=== PATIENT | female | born 1960 | race Caucasian/White ===

== ENCOUNTER → 2017-03-17 | Outpatient (CLI) | payer BC, OTHER ==
--- NOTE | 2017-03-18 08:18 | WOMENS IMAGING REPORT ---
EXAM DESCRIPTION: 3D SCREENING MAMMO BILAT COMPLETED DATE/TIME: 03/17/2017 8:00 am REASON FOR STUDY: SCREENING MAMMO Z12.31 ENCNTR SCREEN MAMMOGRAM FOR MALIGNANT NEOPLASM OF LUIS COMPARISON: Multiple since 2008 TECHNIQUE: Standard craniocaudal and mediolateral oblique views of each breast recorded using digita l acquisition and breast tomosynthesis. LIMITATIONS: None. FINDINGS: No masses, calcifications or architectural distortion. No areas of suspicion. Read with the assistance of CAD. .[facility] - R2 Cenova Version 1.3 .[facility] Imaging - R2 Cenova Version 1.3 .[facility] Imaging - R2 Cenova Version 2.4 .[facility] - R2 Cenova Version 2.4 .[facility] - R2 [employer] Manager Version 9.2 IMPRESSION: NORMAL MAMMOGRAM. BIRADS 1. BREAST DENSITY: c. The breasts are heterogeneously dense, which may obscure small masses. BIRAD: 1 NEGATIVE RECOMMENDATION: ROUTINE SCREENING Please continue yearly bilateral screening tomosynthesis in February 2018 COMMENT: The patient has been notified of the results by letter per SA requirements. Additional no tification policies are in place for contacting patient with suspicious or incomplete findings. Quality ID #[id number]: The [employer] recommends an annual screening mammogram for women aged 40 years or over. This facility utilizes a reminder system to ensure that all patients receive reminder letters, and/or direct phone calls for appointments. This includes reminders for routine scr eening mammograms, diagnostic mammograms, or other Breast Imaging Interventions when appropriate. Th is patient will be placed in the appropriate reminder system. The [employer] (ACR) has developed recommendations for screening MRI of the breast s in certain patient populations, to be used in conjunction with mammography. Breast MRI surveillanc e may be appropriate for women with more than 20% lifetime risk of developing breast cancer as deter mined by genetic testing, significant family history of the disease, or history of mantle radiation f or Hodgkins Disease. ACR Practice Guidelines 2008. DBT Technology DBT is a type of tomographic mammography. With conventional mammography, overlapping breast tissue ma y make lesions difficult to detect, even with good compression. DBT uses an x-ray tube that rotates a round the breast, taking images at different angles. These images are then combined to create thin sl ices of the breast that the radiologist can view as a 3D reconstruction. The [employer] unit can perform full-field digital mammograms (2D imaging); or DBT (3D imaging); or both, in a combination mode that quickly performs both the mammogram and the tomosynthesis scan while the breast is still compressed. PQRS 6045F: Fluoroscopic imaging is not utilized for breast tomosynthesis. TECHNICAL DOCUMENTATION: FINDING NUMBER: (1) ASSESSMENT: (1) JOB ID: [id number] [employer]- All Rights Reserved
== END ==
LOC: WI 07:30
PROVIDERS: ATTEND Specialist
DX: Z12.31 Encounter for screening mammogram for malignant neoplasm of breast (principal)
CPT/HCPCS: 77063; G0202; 77067

== ENCOUNTER → 2018-03-26 | Outpatient (CLI) | payer BC, OTHER ==
--- NOTE | 2018-03-26 09:26 | WOMENS IMAGING REPORT ---
EXAM DESCRIPTION: 3D SCREENING MAMMO BILAT COMPLETED DATE/TIME: 03/26/2018 9:01 am REASON FOR STUDY: SCREENING MAMMO Z12.31 ENCNTR SCREEN MAMMOGRAM FOR MALIGNANT NEOPLASM OF LUIS COMPARISON: [id number] TECHNIQUE: Standard craniocaudal and mediolateral oblique views of each breast recorded using digita l acquisition and breast tomosynthesis. LIMITATIONS: None. FINDINGS: No masses, calcifications or architectural distortion. No areas of suspicion. Read with the assistance of CAD. .[facility] - R2 Cenova Version 1.3 .[facility] Imaging - R2 Cenova Version 1.3 .[facility] Imaging - R2 Cenova Version 2.4 .[facility] - R2 Cenova Version 2.4 .[facility] AT [facility] - R2 Electronic Engraver Version 9.2 IMPRESSION: NORMAL MAMMOGRAM. BIRADS 1. BREAST DENSITY: b. There are scattered areas of fibroglandular density. BIRAD: 1 NEGATIVE RECOMMENDATION: ROUTINE SCREENING COMMENT: The patient has been notified of the results by letter per SA requirements. Additional no tification policies are in place for contacting patient with suspicious or incomplete findings. Quality ID #[id number]: The [employer] recommends an annual screening mammogram for women aged 40 years or over. This facility utilizes a reminder system to ensure that all patients receive reminder letters, and/or direct phone calls for appointments. This includes reminders for routine scr eening mammograms, diagnostic mammograms, or other Breast Imaging Interventions when appropriate. Th is patient will be placed in the appropriate reminder system. The [place] (ACR) has developed recommendations for screening MRI of the breast s in certain patient populations, to be used in conjunction with mammography. Breast MRI surveillanc e may be appropriate for women with more than 20% lifetime risk of developing breast cancer as deter mined by genetic testing, significant family history of the disease, or history of mantle radiation f or Hodgkins Disease. ACR Practice Guidelines 2008. DBT Technology DBT is a type of tomographic mammography. With conventional mammography, overlapping breast tissue ma y make lesions difficult to detect, even with good compression. DBT uses an x-ray tube that rotates a round the breast, taking images at different angles. These images are then combined to create thin sl ices of the breast that the radiologist can view as a 3D reconstruction. The [employer] unit can perform full-field digital mammograms (2D imaging); or DBT (3D imaging); or both, in a combination mode that quickly performs both the mammogram and the tomosynthesis scan while the breast is still compressed. PQRS 6045F: Fluoroscopic imaging is not utilized for breast tomosynthesis. TECHNICAL DOCUMENTATION: FINDING NUMBER: (1) ASSESSMENT: (1) JOB ID: [id number] [employer]- All Rights Reserved Reading location - IP/workstation name: [facility]
== END ==
LOC: WI 07:47
PROVIDERS: ATTEND Specialist
DX: Z12.31 Encounter for screening mammogram for malignant neoplasm of breast (principal)
CPT/HCPCS: 77063; 77067

== ENCOUNTER → 2018-06-15 | Outpatient (CLI) | payer BC, OTHER ==
[2018-06-15 08:50] LABS: ALANINE AMINOTRANSFERASE 69 U/L (9-52); ALBUMIN 4.8 g/dL (3.5-5.0); ALKALINE PHOSPHATASE 77 U/L (38-126); ASPARTATE AMINO TRANSFERASE 59 U/L (14-36); BILIRUBIN,DIRECT 0.3 mg/dL (0.0-0.4); BILIRUBIN,TOTAL 0.6 mg/dL (0.2-1.3); TOTAL PROTEIN 7.5 g/dL (6.3-8.2)
== END ==
LOC: OD 07:19
PROVIDERS: ATTEND Physician Assistant
DX: R94.5 Abnormal results of liver function studies (principal)
CPT/HCPCS: 36415; 80076

== ENCOUNTER → 2019-04-04 | Outpatient (CLI) | payer BC, OTHER ==
--- NOTE | 2019-04-04 10:43 | WOMENS IMAGING REPORT ---
EXAM DESCRIPTION: 3D SCREENING MAMMO BILAT COMPLETED DATE/TIME: 04/04/2019 9:51 am REASON FOR STUDY: Z12.31 SCREENING MAMMO Z12.31 ENCNTR SCREEN MAMMOGRAM FOR MALIGNANT NEOPLASM OF B RE Z78.0 ASYMPTOMATIC MENOPAUSAL STATE COMPARISON: 2014 to 2017 EXAM PARAMETERS: Views: Standard craniocaudal and mediolateral oblique views of each breast recorded using digital acquisition and breast tomosynthesis. Read with the assistance of CAD. .[facility] - [employer] Former Version 9.2 LIMITATIONS: None. FINDINGS: No suspicious masses, suspicious calcifications or architectural distortion. No areas of c oncern. IMPRESSION: NEGATIVE MAMMOGRAM. BIRADS 1. BREAST DENSITY: b. There are scattered areas of fibroglandular density. BIRAD: ASSESSMENT: 1 NEGATIVE RECOMMENDATION: ROUTINE SCREENING COMMENT: The patient has been notified of the results by letter per MQSA requirements. Additional no tification policies are in place for contacting patient with suspicious or incomplete findings. Quality ID #[id number]: The [employer] recommends an annual screening mammogram for women aged 40 years or over. This facility utilizes a reminder system to ensure that all patients receive reminder letters, and/or direct phone calls for appointments. This includes reminders for routine scr eening mammograms, diagnostic mammograms, or other Breast Imaging Interventions when appropriate. Th is patient will be placed in the appropriate reminder system. TECHNICAL DOCUMENTATION: FINDING NUMBER: (1) ASSESSMENT: (1) JOB ID: [id number] [employer]- All Rights Reserved Reading location - IP/workstation name: [email or web address]
--- NOTE | 2019-04-04 12:30 | WOMENS IMAGING REPORT ---
EXAM DESCRIPTION: BONE DENSITY HIP/SPINE COMPLETED DATE/TIME: 04/04/2019 9:51 am REASON FOR STUDY: Z78.0 BONE DENSITY Z12.31 ENCNTR SCREEN MAMMOGRAM FOR MALIGNANT NEOPLASM OF LUIS Z 78.0 ASYMPTOMATIC MENOPAUSAL STATE COMPARISON: None. TECHNIQUE: Dual-Energy X-ray Absorptiometry (DEXA) of the AP Spine and Hip. LIMITATIONS: None. FINDINGS: LUMBAR SPINE: The bone mineral density (BMD) measured from L1-L4 in the AP projection correlates with a T-score of -1.0, which is normal as defined by the World Health Organization. BMD Change vs Baseline: N/A HIP: The bone mineral density (BMD) measured in the left hip correlates with a T-score of -0.9, which is n ormal as defined by the World Health Organization. BMD Change vs Baseline: N/A 10 year Fracture Risk Assessment: Major Osteoporotic Fracture: Not available. Hip Fracture: Not available. IMPRESSION: 1. LUMBAR SPINE WHO CLASSIFICATION: NORMAL. 2. HIP WHO CLASSIFICATION: NORMAL. OVERALL ASSESSMENT: WHO CLASSIFICATION: NORMAL. COMMENT: The World Health Organization defines low BMD as follows: T-score: Normal: Greater than -1.0 Osteopenia: Between -1.0 and -2.5 Osteoporosis: Less than -2.5 without fractures Established osteoporosis: Less than -2.5 with fractures In general, you may wish to consider: Diagnosis Treatment Follow-up DEXA Normal BMD Prevention 2-3 years Osteopenia Prevention/Therapy 1-2 years Osteoporosis Therapy Yearly TECHNICAL DOCUMENTATION: JOB ID: [id number]- All Rights Reserved Reading location - IP/workstation name: [email or web address]
== END ==
LOC: WI 09:15
PROVIDERS: ATTEND Specialist
DX: Z12.31 Encounter for screening mammogram for malignant neoplasm of breast (principal); Z78.0 Asymptomatic menopausal state
CPT/HCPCS: 77063; 77067; 77080

== ENCOUNTER → 2020-04-05 | Outpatient (CLI) | payer BC, OTHER ==
--- NOTE | 2020-04-05 08:48 | WOMENS IMAGING REPORT ---
EXAM DESCRIPTION: 3D SCREENING MAMMO BILAT IMAGES COMPLETED DATE/TIME: 04/05/2020 7:49 am REASON FOR STUDY: ROUTINE BILATERAL SCREENING;Z12.31 Z12.31 ENCNTR SCREEN MAMMOGRAM FOR MALIGNANT N EOPLASM OF LUIS COMPARISON: Priors back to 2010 EXAM PARAMETERS: Views: Standard craniocaudal and mediolateral oblique views of each breast recorded using digital acquisition and breast tomosynthesis. Read with the assistance of CAD. .[facility] Sheet Layer Version 9.2 LIMITATIONS: None. FINDINGS: No suspicious masses, suspicious calcifications or architectural distortion. No areas of c oncern. IMPRESSION: NEGATIVE MAMMOGRAM. BIRADS 1. BREAST DENSITY: b. There are scattered areas of fibroglandular density. BIRAD: ASSESSMENT: 1 NEGATIVE RECOMMENDATION: ROUTINE SCREENING COMMENT: The patient has been notified of the results by letter per MQSA requirements. Additional no tification policies are in place for contacting patient with suspicious or incomplete findings. Quality ID #[id number]: [employer] recommends an annual screening mammogram for women aged 40 years or over. This facility utilizes a reminder system to ensure that all patients receive reminder letters, and/or direct phone calls for appointments. This includes reminders for routine scr eening mammograms, diagnostic mammograms, or other Breast Imaging Interventions when appropriate. Th is patient will be placed in the appropriate reminder system. TECHNICAL DOCUMENTATION: FINDING NUMBER: (1) ASSESSMENT: (1) JOB ID: [id number] [employer]- All Rights Reserved Reading location - IP/workstation name: [email or web address]
--- OUTSIDE RECORDS SUMMARY | 2020-04-06 15:03 | XMS REPORT ---
:1960 [facility] [address] [place] [address] Care Team Providers Name Role Phone Laurita ROBISON Attending Clinician Unavailable Sanjay ROBISON Attending Clinician Unavailable Allergies, Adverse Reactions, Alerts This patient has no known allergies or adverse reactions. Medications This patient has no known medications. Problems This patient has no known problems. Procedures Procedure Date / Time Performed Performing Clinician Devic e OFFICE/OUTPATIENT VISIT, EST 2016-12-03 07:45:00 ASSAY OF FREE THYROXINE 2016-12-03 07:45:00 ASSAY THYROID STIM HORMONE 2016-12-03 07:45:00 ROUTINE VENIPUNCTURE 2016-12-03 07:45:00 OFFICE/OUTPATIENT VISIT, EST 2016-07-22 08:45:00 OFFICE/OUTPATIENT VISIT, EST 2016-03-19 14:45:00 LIPID PANEL 2016-03-19 14:45:00 ROUTINE VENIPUNCTURE 2016-03-19 14:45:00 COMPREHEN METABOLIC PANEL 2016-03-19 14:45:00 LIPID PANEL 2015 07:45:00 OFFICE/OUTPATIENT VISIT, EST 2015 07:45:00 ROUTINE VENIPUNCTURE 2015 07:45:00 COMPREHEN METABOLIC PANEL 2015-06-26 07:45:00 OFFICE/OUTPATIENT VISIT, EST 2015-06-26 07:45:00 ASSAY THYROID STIM HORMONE 2015-06-26 07:45:00 LIPID PANEL 2015-06-26 07:45:00 ROUTINE VENIPUNCTURE 2015-06-26 07:45:00 OFFICE/OUTPATIENT VISIT, EST 2015-03-26 07:45:00 OFFICE/OUTPATIENT VISIT, EST 2015-03-13 08:00:00 OFFICE/OUTPATIENT VISIT, EST 2014-12-11 14:15:00 COMPREHEN METABOLIC PANEL 2014-12-06 07:45:00 LIPID PANEL 2014-12-06 07:45:00 ASSAY THYROID STIM HORMONE 2014-12-06 07:45:00 OFFICE/OUTPATIENT VISIT, EST 2014-12-06 07:45:00 ROUTINE VENIPUNCTURE 2014-12-06 07:45:00 OFFICE/OUTPATIENT VISIT, EST 2014-01-26 09:30:00 OFFICE/OUTPATIENT VISIT, EST 2014-01-09 16:00:00 HEPATIC FUNCTION PANEL 2013-09-08 15:45:00 OFFICE/OUTPATIENT VISIT, EST 2013-09-08 15:45:00 ROUTINE VENIPUNCTURE 2013-09-08 15:45:00 OFFICE/OUTPATIENT VISIT, EST 2013-08-25 09:15:00 Results Test Description Test Time Test Comments Text Results Atomic Results Result Comments LIPID PROFILE 2016-12-03 08:31:00 Test Item Value Reference Range Comments HDL (test code = HDL) 49 MG/DL 32-96 DLDL (test code = DLDL) 91 MG/DL 100-130 TGL (test code = TGL) 145 MG/DL 30-200 CHD (test code = CHD) 31.82 CHOL (test code = CHOL) 154 MG/DL 140-200 CHEM [id number] 08:31:00 Test Item Value Reference Range Comments K (test code = K) 3.6 MMOL/L 3.5-5.1 ALK PHOS (test code = ALK PHOS) 73 U/L 50-136 CO2 (test code = CO2) 27.3 MMOL/L 21.0-32.0 GLOB (test code = GLOB) 3.6 1.9-4.5 AST (test code = AST) 47 U/L 9-37 CR (test code = CR) 0.9 MG/DL 0.4-1.3 EGFR (test code = EGFR) 68.79 >60.00 EGFRAA (test code = EGFRAA) 83.38 >60.00 TP (test code = TP) 7.8 G/DL 6.9-8.5 BILT (test code = BILT) 0.5 MG/DL 0.1-1.0 BUN/CREAT RATIO (test code = BUN/CREAT RATIO) 12 10 -14 BUN (test code = BUN) 11 MG/DL 7-18 ION GAP (test code = ION GAP) 13 4-16 NA (test code = NA) 141 MMOL/L 136-145 GLU (test code = GLU) 100 MG/DL 70-110 CA (test code = CA) 9.1 MG/DL 8.5-10.1 ALB (test code = ALB) 4.2 G/DL 3.2-4.7 ALT (test code = ALT) 72 U/L 9-61 CL (test code = CL) 104 MMOL/L 98-110 FREE T4.2016-12-03 08:31:00 Test Item Value Reference Range Comments FT4 (test code = FT4) 1.09 NG/DL 0.75-1.54 25 [place] VITAMIN D [id number] 08:31:00 Test Item Value Reference Range Comments VIT D (test code = VIT D) 48 NG/ML 30-100 TOTAL [id number] 08:31:00 Test Item Value Reference Range Comments TT3 (test code = TT3) 1.15 NG/ML 0.70-1.70 [id number] 08:31:00 Test Item Value Reference Range Comments TSH (test code = TSH) 0.97 UIU/ML 0.50-5.80 CHEM [id number] 09:06:00 Test Item Value Reference Range Comments EGFRAA (test code = EGFRAA) 83.49 >60.00 GLU (test code = GLU) 99 MG/DL 70-110 ALK PHOS (test code = ALK PHOS) 80 U/L 50-136 BUN/CREAT RATIO (test code = BUN/CREAT RATIO) 16 10 -14 CA (test code = CA) 9.1 MG/DL 8.5-10.1 K (test code = K) 3.7 MMOL/L 3.5-5.1 CO2 (test code = CO2) 26.5 MMOL/L 21.0-32.0 AST (test code = AST) 34 U/L 9-37 BILT (test code = BILT) 0.6 MG/DL 0.1-1.0 EGFR (test code = EGFR) 68.88 >60.00 CL (test code = CL) 99 MMOL/L 98-110 GLOB (test code = GLOB) 3.8 1.9-4.5 ION GAP (test code = ION GAP) 15 4-16 BUN (test code = BUN) 14 MG/DL 7-18 TP (test code = TP) 8.0 G/DL 6.9-8.5 ALT (test code = ALT) 46 U/L 9-61 ALB (test code = ALB) 4.2 G/DL 3.2-4.7 NA (test code = NA) 137 MMOL/L 136-145 CR (test code = CR) 0.9 MG/DL 0.4-1.3 FREE T4.2016-07-22 09:06:00 Test Item Value Reference Range Comments FT4 (test code = FT4) 1.00 NG/DL 0.75-1.54 TOTAL [id number] 09:06:00 Test Item Value Reference Range Comments TT3 (test code = TT3) 1.11 NG/ML 0.70-1.70 25 [place] VITAMIN D [id number] 09:06:00 Test Item Value Reference Range Comments VIT D (test code = VIT D) 25 NG/ML 30-100 [id number] 09:06:00 Test Item Value Reference Range Comments TSH (test code = TSH) 1.87 UIU/ML 0.50-5.80 LIPID [id number] 09:06:00 Test Item Value Reference Range Comments CHD (test code = CHD) 29.31 DLDL (test code = DLDL) 101 MG/DL 100-130 CHOL (test code = CHOL) 174 MG/DL 140-200 HDL (test code = HDL) 51 MG/DL 32-96 TGL (test code = TGL) 153 MG/DL 30-200 [id number] [id number] 15:38:00 Test Item Value Reference Range Comments BILT (test code = BILT) 0.7 MG/DL 0.1-1.0 CR (test code = CR) 0.9 MG/DL 0.4-1.3 GLU (test code = GLU) 88 MG/DL 70-110 AST (test code = AST) 36 U/L 9-37 CA (test code = CA) 9.5 MG/DL 8.5-10.1 CO2 (test code = CO2) 31.5 MMOL/L 21.0-32.0 GLOB (test code = GLOB) 3.7 1.9-4.5 BUN/CREAT RATIO (test code = BUN/CREAT RATIO) 12 10 -14 ALK PHOS (test code = ALK PHOS) 82 U/L 50-136 ALB (test code = ALB) 4.3 G/DL 3.2-4.7 EGFR (test code = EGFR) 68.97 >60.00 K (test code = K) 3.6 MMOL/L 3.5-5.1 CL (test code = CL) 101 MMOL/L 98-110 TP (test code = TP) 8.0 G/DL 6.9-8.5 ION GAP (test code = ION GAP) 10 4-16 EGFRAA (test code = EGFRAA) 83.59 >60.00 NA (test code = NA) 139 MMOL/L 136-145 ALT (test code = ALT) 62 U/L 9-61 BUN (test code = BUN) 11 MG/DL 7-18 25 [place] VITAMIN D [id number] 15:38:00 Test Item Value Reference Range Comments VIT D (test code = VIT D) 22 L NG/ML 30-100 LIPID [id number] 15:38:00 Test Item Value Reference Range Comments TGL (test code = TGL) 135 MG/DL 30-200 CHD (test code = CHD) 27.27 CHOL (test code = CHOL) 176 MG/DL 140-200 DLDL (test code = DLDL) 110 MG/DL 100-130 HDL (test code = HDL) 48 MG/DL 32-96 LIPID [id number] 08:06:00 Test Item Value Reference Range Comments HDL (test code = HDL) 49 MG/DL 32-96 CHD (test code = CHD) 22.37 CHOL (test code = CHOL) 219 MG/DL 140-200 DLDL (test code = DLDL) 155 MG/DL 100-130 TGL (test code = TGL) 123 MG/DL 30-200 LIPID [id number] 07:54:00 Test Item Value Reference Range Comments CHOL (test code = CHOL) 222 MG/DL 140-200 TGL (test code = TGL) 125 MG/DL 30-200 CHD (test code = CHD) 20.72 HDL (test code = HDL) 46 MG/DL 32-96 DLDL (test code = DLDL) 160 MG/DL 100-130 CHEM [id number] 07:54:00 Test Item Value Reference Range Comments EGFRAA (test code = EGFRAA) 83.82 >60.00 CA (test code = CA) 9.0 MG/DL 8.5-10.1 TP (test code = TP) 7.5 G/DL 6.9-8.5 ALT (test code = ALT) 71 U/L 9-61 CL (test code = CL) 103 MMOL/L 98-110 BILT (test code = BILT) 0.4 MG/DL 0.1-1.0 K (test code = K) 4.2 MMOL/L 3.5-5.1 CR (test code = CR) 0.9 MG/DL 0.4-1.3 NA (test code = NA) 139 MMOL/L 136-145 ION GAP (test code = ION GAP) 14 4-16 ALK PHOS (test code = ALK PHOS) 76 U/L 50-136 GLOB (test code = GLOB) 3.6 1.9-4.5 EGFR (test code = EGFR) 69.16 >60.00 CO2 (test code = CO2) 25.8 MMOL/L 21.0-32.0 BUN (test code = BUN) 15 MG/DL 7-18 BUN/CREAT RATIO (test code = BUN/CREAT RATIO) 17 10 -14 ALB (test code = ALB) 3.9 G/DL 3.2-4.7 GLU (test code = GLU) 103 MG/DL 70-110 AST (test code = AST) 37 U/L 9-37 [id number] 07:54:00 Test Item Value Reference Range Comments TSH (test code = TSH) 1.27 UIU/ML 0.50-5.80 LIPID [id number] 08:06:00 Test Item Value Reference Range Comments CHOL (test code = CHOL) 198 MG/DL 140-200 TGL (test code = TGL) 232 MG/DL 30-200 CHD (test code = CHD) 21.72 HDL (test code = HDL) 43 MG/DL 32-96 DLDL (test code = DLDL) 124 MG/DL 100-130 [id number] 08:06:00 Test Item Value Reference Range Comments TSH (test code = TSH) 1.12 UIU/ML 0.50-5.80 CHEM [id number] 08:06:00 Test Item Value Reference Range Comments GLU (test code = GLU) 103 MG/DL 70-110 ALK PHOS (test code = ALK PHOS) 83 U/L 50-136 EGFR (test code = EGFR) 69.30 >60.00 BUN/CREAT RATIO (test code = BUN/CREAT RATIO) 10 10 -14 ION GAP (test code = ION GAP) 15 4-16 BILT (test code = BILT) 0.5 MG/DL 0.1-1.0 CA (test code = CA) 8.6 MG/DL 8.5-10.1 BUN (test code = BUN) 9 MG/DL 7-18 AST (test code = AST) 68 U/L 9-37 K (test code = K) 3.1 MMOL/L 3.5-5.1 CL (test code = CL) 101 MMOL/L 98-110 NA (test code = NA) 139 MMOL/L 136-145 GLOB (test code = GLOB) 4.0 1.9-4.5 ALT (test code = ALT) 115 U/L 9-61 CO2 (test code = CO2) 26.1 MMOL/L 21.0-32.0 ALB (test code = ALB) 3.8 G/DL 3.2-4.7 CR (test code = CR) 0.9 MG/DL 0.4-1.3 EGFRAA (test code = EGFRAA) 83.99 >60.00 TP (test code = TP) 7.8 G/DL 6.9-8.5 LIVER [id number] 16:16:00 Test Item Value Reference Range Comments TP (test code = TP) 8.4 G/DL 6.9-8.5 ALB (test code = ALB) 3.7 G/DL 3.2-4.7 ALT (test code = ALT) 84 U/L 9-61 BILT (test code = BILT) 0.6 MG/DL 0.1-1.0 BILD (test code = BILD) 0.1 MG/DL 0.0-0.2 AST (test code = AST) 42 U/L 9-37 ALK PHOS (test code = ALK PHOS) 103 U/L 50-136 Assessments Condition Name Status Diagnosis Date Treating Clinici an 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 Hyperlipidemia, unspecified Active Gastro-esophageal reflux disease without Active esophagitis Essential (primary) hypertension Active Hyperlipidemia, unspecified Active Gastro-esophageal reflux disease without Active esophagitis Essential (primary) hypertension Active Other asthma Active Hyperlipidemia, unspecified Active Gastro-esophageal reflux disease without Active esophagitis Essential (primary) hypertension Active 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 Hyperlipidemia, unspecified Active Essential (primary) hypertension Active Gastro-esophageal reflux disease without Active esophagitis Pneumonia, unspecified organism Active Mixed hyperlipidemia Active Essential (primary) hypertension Active Disorder of thyroid, unspecified Active Gastro-esophageal reflux disease without Active esophagitis Essential (primary) hypertension Active Mixed hyperlipidemia Active Disorder of thyroid, unspecified Active Gastro-esophageal reflux disease without Active esophagitis Insect bite of left eyelid and periocular Active area, init Bit/stung by nonvenom insect \T\ oth Active nonvenom arthropods, init Sinusitis - Frontal (Acute) Active Abnormal - Liver Function Study Active Hypertension - Benign (Essential) Active Asthma - Unspecified Active Nasopharyngitis - Acute (Common Cold) Active Onychia and paronychia of toe Active Sinusitis - Frontal (Acute) Active Hypertension - Benign (Essential) Active Asthma - Unspecified Active Abnormal - Liver Function Study Active Hypertension - Benign (Essential) Active Cough Active Asthma - Unspecified Active Cough Active Asthma Active Hypertensive disorder Active Asthma Active Hypertensive disorder Active Asthma Active Hypertensive disorder Active Asthma Active Hypertensive disorder Active Asthma Active Hypertensive disorder Active Asthma Active Hypertensive disorder Active Asthma Active Hypertensive disorder Active Asthma Active Hypertensive disorder Active Asthma Active Hypertensive disorder Active Asthma Active Hypertensive disorder Active Asthma Active Hypertensive disorder Active Encounters Start End Encounter Admission Attending Care Care Encounter Date/Time Date/Time Type Type Clinicians Facility Department ID 2016-12-03 2016-12-03 Outpatient ALEX Shay MD [id number] 07:45:00 07:45:00 [facility] [id number] [id number] [place], [id number] Inc. 2016-07-22 2016-07-22 Outpatient ALEX Shay MD [id number] 08:45:00 08:45:00 [facility] [id number] [facility] [id number] [place], [id number] Inc. 2016-03-19 2016-03-19 Outpatient ALEX Shay MDton [id number] 14:45:00 14:45:00 [facility] [id number] Health [id number] Center, [id number] Inc. 2015 2015 Outpatient Sanjay ROBISON, ALEX Su [id number] 07:45:00 07:45:00 [facility] [id number] Health [id number] [place], [id number] Inc. 2015-06-26 2015-06-26 Outpatient Sanjay ROBISON, ALEX Su [id number] 07:45:00 07:45:00 [facility] [id number] Health [id number] [place], [id number] Inc. 2015-03-26 2015-03-26 Outpatient Sanjay ROBISON, ALEX Su [id number] 07:45:00 07:45:00 [facility] [id number] Health [id number] [place], [id number] Inc. 2015-03-13 2015-03-13 Outpatient Sanjay ROBISON, ALEX Su [id number] 08:00:00 08:00:00 [facility] [id number] Health [id number] [place], [id number] Inc. 2014-12-11 2014-12-11 Outpatient Sanjay ROBISON ALEX Su [id number] 14:15:00 14:15:00 [facility] [id number] Health [id number] [place], [id number] Inc. 2014-12-06 2014-12-06 Outpatient Sanjay ROBISON AELX Su [id number] 07:45:00 07:45:00 [facility] [id number] Health [id number] [place], [id number] Inc. 2014-01-26 2014-01-26 Outpatient Sanjay ROBISON ALEX Su [id number] 09:30:00 09:30:00 [facility] [id number] Health [id number] [place], [id number] Inc. 2014-01-09 2014-01-09 Outpatient Sanjay ROBISON ALEX Su [id number] 16:00:00 16:00:00 [facility] [id number] Health [id number] [place], [id number] Inc. 2013-09-08 2013-09-08 Outpatient Sanjay ROBISON ALEX [place] [id number] 15:45:00 15:45:00 [facility] [id number] Health [id number] [place], [id number] Inc. 2013-08-25 2013-08-25 Outpatient Sanjay ROBISON [facility] [id number] 09:15:00 09:15:00 [facility] [id number] Health [id number] [place], [id number] Inc. Social History This patient has no known social history. Vital Signs This patient has no known vital signs.
== END ==
LOC: WI 08:21
PROVIDERS: ATTEND Specialist
DX: Z12.31 Encounter for screening mammogram for malignant neoplasm of breast (principal)
CPT/HCPCS: 77063; 77067